=== PATIENT | female | born 1995 | race Caucasian/White ===

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

== ENCOUNTER → 2017-02-01 | Outpatient (CLI) | payer OTHER ==
[~2017-02-01] MED LIST: BCPILLS PO; LEVO-366 PO
== END | disposition home or self-care (01) ==
LOC: C.LAB 03:58
DX: Z02.83 Encounter for blood-alcohol and blood-drug test (principal)